=== PATIENT | female | born 1980 | race Caucasian/White ===

== ENCOUNTER 2017-07-20 14:53 | Outpatient (CLI) | END 2017-07-20 20:10 | disposition home or self-care (01) ==

== ENCOUNTER 2017-07-21 18:37 | Outpatient (CLI) | END 2017-07-21 20:40 | disposition home or self-care (01) ==

== ENCOUNTER 2017-09-02 10:40 | Outpatient (CLI) | END 2017-09-02 14:45 | disposition home or self-care (01) ==

== ENCOUNTER 2017-09-30 21:27 | Inpatient (IN) | END 2017-10-03 13:09 | disposition home or self-care (01) | DRG 775 ==